=== PATIENT | male | born 1975 | race Caucasian/White ===

== ENCOUNTER 2017-02-26 07:50 | Inpatient (IN) | payer OTHER ==
[2017-02-26] VITALS (7 sets, daily range): BP systolic 115–129; BP diastolic 61–69; PULSE 69–97; RESP 16–20; TEMP 96.9–99.7; O2SAT 98–100
[~2017-02-26] VITALS: Ht 188 cm; Wt 89.5 kg
[2017-02-26] MEDS ORDERED: PROPOFOL 1000 MG/100 ML INJ 0 ML ONE (08:06)
[2017-02-26] MEDS ORDERED: ETOMIDATE 20 MG/10 ML VIAL ONE (08:09)
[2017-02-26] MEDS ORDERED: MORPHINE SULFATE 8 MG/ML INJ ONE (08:26)
[2017-02-26] MEDS ORDERED: ONDANSETRON HCL 4 MG/2 ML VIAL ONE (08:26)
[2017-02-26] MEDS ORDERED: IOHEXOL 350 MG/ML 10 ML VIAL (for RAD DIAG) IVCONTRAST ONE (08:55)
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
[2017-02-26] MEDS ORDERED: DIPHTH/TETANUS/ACEL PERTUSSIS (BOOSTER) 0.5 ML VIAL/PFS IM ONE (09:03)
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
[2017-02-26] MEDS ORDERED: PROPOFOL 200 MG/20 ML AMP IV ONE (09:29)
[2017-02-26] MEDS ORDERED: ONDANSETRON HCL 4 MG/2 ML VIAL IV PUSH ONE (09:29)
[2017-02-26] MEDS ORDERED: NEOSTIGMINE 3 MG/3 ML SYR IV ONE (09:29)
[2017-02-26] MEDS ORDERED: PHENYLEPH/NS 1000 MCG/10 ML SYR IV ONE (09:29)
[2017-02-26] MEDS ORDERED: LACTATED RINGER'S 1000 ML INJ 1,000 ML IV ONE (09:29)
[2017-02-26] MEDS ORDERED: LIDOCAINE HCL 1% PF 5 ML AMPULE OTHER ONE (09:29)
[2017-02-26] MEDS ORDERED: ROCURONIUM INJ 50 MG/5 ML SYRINGE IV PUSH ONE (09:29)
[2017-02-26] MEDS ORDERED: GLYCOPYRROLATE 1 MG/5 ML SYRINGE IV PUSH ONE (09:29)
[2017-02-26 09:54] LABS: AUTOMATED NEUTROPHIL # 5.4 TH/MM3 (1.8-7.7); BASOPHIL # 0.1 TH/MM3 (0-0.2); BASOPHIL % 0.8 % (0.0-2.0); EOSINOPHIL # 0.2 TH/MM3 (0-0.4); EOSINOPHIL % 2.2 % (0.0-4.0); HEMATOCRIT 39.2 % (39.0-51.0); HEMO FLAGS DIFF FINAL; LYMPH % 26.8 % (9.0-44.0); LYMPHOCYTE # 2.4 TH/MM3 (1.0-4.8); MEAN CELL VOLUME 86.5 FL (80.0-100.0); MEAN CORPUSCULAR HGB CONC 33.5 % (32.0-36.0); NEUT % 61.2 % (16.0-70.0); PLATELET COUNT 198 TH/MM3 (150-450); RED BLOOD COUNT 4.52 MIL/MM3 (4.50-5.90); RED CELL DISTRIBUTION WIDTH 13.6 % (11.6-17.2); WHITE BLOOD COUNT 8.8 TH/MM3 (4.0-11.0)
[2017-02-26 09:55] LABS: I-STAT POTASSIUM 3.8 MMOL/L (3.5-4.9); I-STAT SODIUM 140 MMOL/L (138-146)
[2017-02-26 09:58] LABS: APTT (PATIENT) 23.2 SEC (24.3-30.1); PROTHROMBIN TIME - PATIENT 10.7 SEC (9.8-11.6)
[2017-02-26] MEDS ORDERED: ETOMIDATE 20 MG/10 ML VIAL IV PUSH ONE (10:00)
[2017-02-26] MEDS ORDERED: SODIUM CHLOR 0.9% 1000 ML INJ 1,000 ML IV ONE (10:00)
[2017-02-26 10:09] LABS: ALCOHOL LESS THAN 3 MG/DL (0-5)
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
[2017-02-26] MEDS ORDERED: GENTAMICIN SULFATE 80 MG/2 ML VIAL ONE (10:41)
[2017-02-26] MEDS ORDERED: ceFAZolin 2 GM PREMIX 50 ML ONE (10:41)
[2017-02-26] MEDS ORDERED: VANCOMYCIN HCL 1000 MG VIAL ONE (10:42)
[2017-02-26] MEDS ORDERED: SODIUM CHLOR 0.9% 250 ML INJ 250 ML ONE (10:42)
[2017-02-26] MEDS ORDERED: FAMOTIDINE 20 MG/2 ML VIAL ONE (10:51)
[2017-02-26] MEDS ORDERED: HYDROmorphone HCL PF 1 MG/ML VIAL ONE (10:51)
[2017-02-26] MEDS ORDERED: XARE10TA PO (12:20)
[2017-02-26] MEDS ORDERED: HYDR-3583 PO (12:20)
[2017-02-26] MEDS ORDERED: ONDANSETRON HCL 4 MG/2 ML VIAL IVP PRN (14:00)
[2017-02-26] MEDS ORDERED: ERGOCALCIFEROL (VIT D2) 50,000 UNIT CAP PO SCH (14:00)
[2017-02-26] MEDS ORDERED: diphenhydrAMINE HCL 25 MG CAP PO PRN (14:00)
--- NOTE | 2017-02-26 14:01 | PD.OP ---
cc: Bj Torre MD Operative Report Date of Surgery: Feb 26, 2017 Preoperative Diagnosis: right distal tibial shaft fracture Postoperative Diagnosis: Procedure: Reduction and intramedullary nail fixation right tibia Anesthesia: Gen. Surgeon: Bj Torre Instrument Assembler(s): ANTONIETA Kennedy PA-C The surgical procedure was assisted by my physician instructional support assistant. My P.A. presence was necessary throughout this case for the manipulation and positioning of the surgical extremity. My P.A. was assisting me throughout the duration of this procedure. The skill set of a physician instructional support assistant was medically necessary to complete this procedure. During the surgical case the retail maintenance technician was working at the back table and the physician instructional support assistant was directly assisting me. Operation and Findings: Implants: synthes [10]mm x [360]mm tibial nail Plan of activity: Nonweightbearing Patient was seen and examined preoperatively. An informed consent was obtained from patient after detailed discussion of risk and benefits. Risks of surgery include bleeding, infection, painful hardware, nonunion, malunion, leg length discrepancy, need for hardware removal, and medical complications associated with anesthesia including blood clots, stroke, heart attack, and were discussed. Operative site was marked. Patient was brought to the operating room placed on or table. Patient received IV antibiotics and was given IV sedation GETA. Operative leg was prepped with alcohol Hibiclens and draped in usual sterile fashion. Timeout procedure was performed Procedure began with reduction of fracture. 2 small incisions were made around the fracture site. A percutaneous clamp was placed. Traction was applied. Fracture was reduced. There was comminution of the fracture. The fracture reduced and excellent alignment was achieved. Fracture clamp was used to aid in reduction. Next a 3 cm incision was made proximal to the patella. Quadriceps tendon was split in line with fibers. Cannulas were placed in the patellofemoral joint to protect the articular surface at all times. A guidepin was placed into the tibia and advanced in the tibial canal. Fluoroscopy was used to confirm appropriate guidepin placement. An opening reamer was used to open the tibial canal. A ball-tipped guidewire was advanced down the tibial canal. Guidepin was passed across the fracture site into the center of the distal tibia. Fluoroscopy confirmed guidepin placement. The nail length was now measured. The fracture was now held in a reduced position and the canal was reamed. The canal was reamed up to appropriate size. A Synthes nail was now selected. Next the nail was fully seated. Using perfect [place] technique 2 distal interlocking screws were placed. Using the insertion handle as a guide 2 proximal interlocking screws were placed. Fluoroscopy confirmed excellent of fracture with well-placed hardware. Incisions and the knee joint were thoroughly irrigated with sterile saline. Fascia was closed with #1 Vicryl , subcutaneous tissues closed with 3-0 Vicryl and skin was closed with gareth. Sterile dressings were applied. Patient was awakened and transferred to recovery in stable condition. Bj Torre MD Feb 26, 2017 14:01
[2017-02-26] MEDS ORDERED: DO NOT ADM ANY ANTICOAGULANT DRUGS PRN (14:16)
[2017-02-26] MEDS ORDERED: *MEPERIDINE 25 MG INJ VIAL PERIprocedural Use ONLY ONE (14:21)
--- NOTE | 2017-02-26 14:23 | HHI.FF ---
Face to Face Verification Diagnosis: (1) Closed tibia fracture Physical Therapy Gait training Right LE Weight Bearing: Non WB Nursing Dressing Changes: Daily dressing change, Jamel wrap, 4x4s, Xeroform I have seen patient Douglas Delacruz on 02/26/17. My clinical findings support the need for the requested home health care services because: Ltd mobility - disease progression I certify that my clinical findings support that this patient is homebound because: Post-op weakness Alfredito García Feb 26, 2017 14:23
--- NOTE | 2017-02-26 14:23 | PD.ORT.PN ---
Subjective Subjective Remarks POD 0 s/p right tibia IMN s/p right thumb fx stable in pacu Objective Vitals Vital Signs Date Time Temp Pulse Resp B/P (MAP) Pulse Ox O2 Delivery O2 Flow Rate FiO2 02/26/17 10:30 02/26/17 10:26 100 02/26/17 10:26 74 17 123/62 (82) 100 Nasal Cannula 2.00 02/26/17 10:26 Nasal Cannula 2.00 02/26/17 08:47 97 20 129/65 (86) 98 Room Air 02/26/17 08:25 99 02/26/17 07:59 Nasal Cannula 2.00 02/26/17 07:56 98.8 76 20 119/64 (82) 99 I/O 02/25/17 02/25/17 02/25/17 02/26/17 02/26/17 02/26/17 07:00 15:00 23:00 07:00 15:00 23:00 Intake Total 1250 ml Output Total 50 ml Balance 1200 ml Other 1250 ml Output Estimated Blood Loss 50 ml Result Diagram: 02/26/17 0813 Other Results Laboratory Tests Test 02/26/17 08:13 Prothromb Time International Ratio 1.0 RATIO Prothrombin Time 10.7 SEC (9.8-11.6) Imaging Last 24 hours Impressions Tibia/Fibula X-Ray 02/26/17 0000 Signed Impressions: Service Date/Time: Sunday, February 26, 2017 08:03 - CONCLUSION: Comminuted mildly displaced fractures involving the distal tibia and fibula. Rizwan Ruvalcaba MD Pelvis X-Ray 02/26/17 0000 Signed Impressions: Service Date/Time: Sunday, February 26, 2017 08:03 - CONCLUSION: Unremarkable examination of the pelvis. James Biswas Jr., MD Head CT 02/26/17 0000 Signed Impressions: Service Date/Time: Sunday, February 26, 2017 08:26 - CONCLUSION: 1. No acute intracranial hemorrhage. 2. There is a well-defined extra-axial fluid collection in the posterior fossa on the left side adjacent to the posterior left cerebellar hemisphere. This would suggest either a chronic subdural hygroma versus arachnoid cyst. 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 3. The rest of examination is grossly unremarkable for patient's age. Rizwan Ruvalcaba MD Hand X-Ray 02/26/17 Signed Impressions: Service Date/Time: Sunday, February 26, 2017 08:03 - CONCLUSION: Acute fracture of the first metacarpal. James Biswas Jr., MD Elbow X-Ray 02/26/17 Signed Impressions: Service Date/Time: Sunday, February 26, 2017 08:03 - CONCLUSION: Unremarkable limited examination of the right elbow. James Biswas Jr., MD Chest X-Ray 02/26/17 Signed Impressions: Service Date/Time: Sunday, February 26, 2017 08:03 - CONCLUSION: No acute cardiopulmonary process. Dima Mayer MD Chest CT 02/26/17 Signed Impressions: Service Date/Time: Sunday, February 26, 2017 08:32 - CONCLUSION: 1. Isolated 2-3 mm subpleural nodule in the left lower lobe laterally is almost certainly postinflammatory. Minimal dependent atelectatic changes. Lungs are otherwise clear. 2. Soft tissue density in the anterior mediastinum probably represents some residual thymic tissue. 3. Otherwise negative. No acute trauma. Dima Mayer MD Cervical Spine CT 02/26/17 Signed Impressions: Service Date/Time: Sunday, February 26, 2017 08:28 - CONCLUSION: Normal examination for a patient of this age. Rizwan Ruvalcaba MD Ankle X-Ray 02/26/17 Signed Impressions: Service Date/Time: Sunday, February 26, 2017 08:03 - CONCLUSION: Tib-fib fracture as above. Dima Mayer MD Abdomen/Pelvis CT 02/26/17 Signed Impressions: Service Date/Time: Sunday, February 26, 2017 08:29 - CONCLUSION: 1. No signs of acute trauma. 2. 12 12 x 7 mm low density lesion involving the pancreas at the junction of the head and body. This warrants further characterization utilizing outpatient MRI. 3. Right renal cyst. James Biswas Jr., MD Objective Remarks RLE: dressings clean and dry. +swelling of leg. +cap refill distally Assessment & Plan Assessment and Plan 1) Right Tibial Shaft Fx s/p IMN - POD 0 -NWB -daily dressing changes -plan for DC home with [facility] sat/sun -f/u with Lino or [facility]LOISA in 2 weeks 2) Right Thumb Fx -hand consult Alfredito García Feb 26, 2017 14:23
[2017-02-26] MEDS ORDERED: *ONDANSETRON 4 MG VIAL PERIprocedural Use ONLY ONE (14:25)
--- NOTE | 2017-02-26 14:30 | RADRPT ---
EXAM DATE/TIME: 02/26/2017 13:43 [facility] COMPARISON: TIBIA/FIBULA RIGHT (AP/LAT), February 26, 2017, 8:03. INDICATIONS : Post-op ORIF right tibia nail. MEDICAL HISTORY : None. SURGICAL HISTORY : None. ENCOUNTER: Subsequent ACUITY: 1 day PAIN SCORE: Non-responsive. LOCATION: Right tibia. FINDINGS: 8 magnified C-arm spot views are centered over the lower leg and labeled right. These show an intrame dullary desirae with anchoring screws traversing a tibial comminuted diaphyseal fracture. The alignment. Fibular fracture is noted. CONCLUSION: Limited images as detailed above. James Biswas Jr., MD on February 26, 2017 at 14:28 Board Certified Radiologist. This report was verified electronically.
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
[2017-02-26] MEDS: LACTATED RINGER'S 1000 ML INJ 1,000 ML IV SCH (14:42)
[2017-02-26] MEDS ORDERED: MISCELLANEOUS NURSING INFORMATION XX SCH (14:45)
[2017-02-26] MEDS ORDERED: SODIUM CHLORIDE 0.9% FLUSH 10 ML FLUSH IV FLUSH PRN (14:45)
[2017-02-26] MEDS ORDERED: ENALAPRILAT 1.25 MG/ML VIAL IV PUSH PRN (14:45)
[2017-02-26] MEDS: KETOROLAC TROMETHAMINE 30 MG/ML (IVP) VIAL IVP SCH ×2 (15:01→21:03)
[2017-02-26] MEDS: MORPHINE SULFATE 4 MG/ML INJ IV PUSH PRN ×3 (15:31→23:18)
[2017-02-26] MEDS: CALCIUM/VITAMIN D 250 MG/125 U TAB PO SCH (17:27)
[2017-02-26] MEDS: ACETAMINOPHEN/HYDROcodone 325 MG/10 MG TAB PO PRN ×2 (17:27→21:03)
[2017-02-26] MEDS: ceFAZolin 2 GM PREMIX 50 ML IV SCH (17:28)
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
[2017-02-26] MEDS: MAGNESIUM HYDROXIDE SUSP 30 ML CUP PO SCH (21:00)
[2017-02-26] MEDS: DOCUSATE SODIUM 50 MG/SENNA 8.6 MG TAB PO SCH (21:04)
[2017-02-26] MEDS: FAMOTIDINE 20 MG TAB PO SCH (21:04)
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
[2017-02-27] MEDS: VANCOMYCIN INJ 1,000 MG in SODIUM CHLOR 0.9% 250 ML INJ 250 ML IV SCH ×2 (01:04→12:27)
[2017-02-27] MEDS: ceFAZolin 2 GM PREMIX 50 ML IV SCH ×2 (01:04→08:21)
[2017-02-27] MEDS: LACTATED RINGER'S 1000 ML INJ 1,000 ML IV SCH (01:05)
[2017-02-27] MEDS: MORPHINE SULFATE 4 MG/ML INJ IV PUSH PRN ×5 (02:59→22:14)
[2017-02-27] MEDS: ENOXAPARIN SODIUM 40 MG/0.4 ML SYRINGE SQ SCH (02:59)
[2017-02-27 04:00] VITALS: BP 117/58; PULSE 69; RESP 16; TEMP 98; O2SAT 99
[2017-02-27] MEDS: ACETAMINOPHEN/HYDROcodone 325 MG/10 MG TAB PO PRN ×5 (05:13→20:00)
[2017-02-27 05:14] LABS: AUTOMATED NEUTROPHIL # 4.2 TH/MM3 (1.8-7.7); BASOPHIL % 0.5 % (0.0-2.0); EOSINOPHIL # 0.1 TH/MM3 (0-0.4); HEMATOCRIT 32.1 % (39.0-51.0); HEMO FLAGS DIFF FINAL; LYMPH % 21.8 % (9.0-44.0); LYMPHOCYTE # 1.4 TH/MM3 (1.0-4.8); MEAN CELL VOLUME 86.7 FL (80.0-100.0); MEAN CORPUSCULAR HEMOGLOBIN 29.8 PG (27.0-34.0); MEAN CORPUSCULAR HGB CONC 34.4 % (32.0-36.0); MONO % 9.5 % (0.0-8.0); NEUT % 66.2 % (16.0-70.0); PLATELET COUNT 144 TH/MM3 (150-450); RED CELL DISTRIBUTION WIDTH 13.2 % (11.6-17.2); WHITE BLOOD COUNT 6.4 TH/MM3 (4.0-11.0)
[2017-02-27] MEDS: KETOROLAC TROMETHAMINE 30 MG/ML (IVP) VIAL IVP SCH (05:15)
[2017-02-27 05:34] LABS: BICARBONATE 28.9 MEQ/L (21.0-32.0); POTASSIUM 3.6 MEQ/L (3.5-5.1)
--- NOTE | 2017-02-27 07:48 | PD.ORT.PN ---
Subjective Post Op Day #: 1 Subjective Remarks still painful Objective Vitals Vital Signs Date Time Temp Pulse Resp B/P (MAP) Pulse Ox O2 Delivery O2 Flow Rate FiO2 02/27/17 04:00 98.0 69 16 117/58 (77) 99 02/26/17 23:58 98.7 74 16 122/68 (86) 100 02/26/17 20:00 99.7 75 16 118/69 (85) 100 02/26/17 15:48 96.9 69 19 115/61 (79) 100 02/26/17 15:10 98.5 63 18 122/60 (80) 99 Nasal Cannula 1 02/26/17 15:00 63 20 123/61 (81) 99 Nasal Cannula 1 02/26/17 14:45 67 21 122/60 (80) 19 Nasal Cannula 2 02/26/17 14:30 66 21 122/58 (79) 99 Nasal Cannula 2 02/26/17 14:23 97.8 90 20 131/74 (93) 93 Nasal Cannula 4 02/26/17 10:30 02/26/17 10:26 100 02/26/17 10:26 74 17 123/62 (82) 100 Nasal Cannula 2.00 02/26/17 10:26 Nasal Cannula 2.00 02/26/17 08:47 97 20 129/65 (86) 98 Room Air 02/26/17 08:25 99 02/26/17 07:59 Nasal Cannula 2.00 02/26/17 07:56 98.8 76 20 119/64 (82) 99 I/O 02/26/17 02/26/17 02/26/17 02/27/17 02/27/17 02/27/17 07:00 15:00 23:00 07:00 15:00 23:00 Intake Total 1250 ml 505 ml 360 ml Output Total 50 ml 250 ml 350 ml Balance 1200 ml 255 ml 10 ml Intake Oral 480 ml 360 ml IV Total 25 ml Other 1250 ml Output Urine Total 250 ml 350 ml Estimated Blood Loss 50 ml Result Diagram: 02/27/17 0411 02/27/17 0441 Other Results Laboratory Tests Test 02/26/17 08:13 Prothromb Time International Ratio 1.0 RATIO Prothrombin Time 10.7 SEC (9.8-11.6) Imaging Last 24 hours Impressions Tibia/Fibula X-Ray 02/26/17 Signed Impressions: Service Date/Time: Sunday, February 26, 2017 08:03 - CONCLUSION: Comminuted mildly displaced fractures involving the distal tibia and fibula. Rizwan Ruvalcaba MD Pelvis X-Ray 02/26/17 Signed Impressions: Service Date/Time: Sunday, February 26, 2017 08:03 - CONCLUSION: Unremarkable examination of the pelvis. James Biswas Jr., MD Head CT 02/26/17 Signed Impressions: Service Date/Time: Sunday, February 26, 2017 08:26 - CONCLUSION: 1. No acute intracranial hemorrhage. 2. There is a well-defined extra-axial fluid collection in the posterior fossa on the left side adjacent to the posterior left cerebellar hemisphere. This would suggest either a chronic subdural hygroma versus arachnoid cyst. 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 3. The rest of examination is grossly unremarkable for patient's age. Rizwan Ruvalcaba MD Hand X-Ray 02/26/17 Signed Impressions: Service Date/Time: Sunday, February 26, 2017 08:03 - CONCLUSION: Acute fracture of the first metacarpal. James Biswas Jr., MD Elbow X-Ray 02/26/17 Signed Impressions: Service Date/Time: Sunday, February 26, 2017 08:03 - CONCLUSION: Unremarkable limited examination of the right elbow. James Biswas Jr., MD Chest X-Ray 02/26/17 Signed Impressions: Service Date/Time: Sunday, February 26, 2017 08:03 - CONCLUSION: No acute cardiopulmonary process. Dima Mayer MD Chest CT 02/26/17 Signed Impressions: Service Date/Time: Sunday, February 26, 2017 08:32 - CONCLUSION: 1. Isolated 2-3 mm subpleural nodule in the left lower lobe laterally is almost certainly postinflammatory. Minimal dependent atelectatic changes. Lungs are otherwise clear. 2. Soft tissue density in the anterior mediastinum probably represents some residual thymic tissue. 3. Otherwise negative. No acute trauma. Dima Mayer MD Cervical Spine CT 02/26/17 Signed Impressions: Service Date/Time: Sunday, February 26, 2017 08:28 - CONCLUSION: Normal examination for a patient of this age. Rizwan Ruvalcaba MD Ankle X-Ray 02/26/17 0000 Signed Impressions: Service Date/Time: Sunday, February 26, 2017 08:03 - CONCLUSION: Tib-fib fracture as above. Dima Mayer MD Abdomen/Pelvis CT 02/26/17 0000 Signed Impressions: Service Date/Time: Sunday, February 26, 2017 08:29 - CONCLUSION: 1. No signs of acute trauma. 2. 12 12 x 7 mm low density lesion involving the pancreas at the junction of the head and body. This warrants further characterization utilizing outpatient MRI. 3. Right renal cyst. James Biswas Jr., MD Objective Remarks RLE: dressings clean and dry. +swelling of leg. +cap refill distally, NVI Assessment & Plan Ortho Post Op Day #: 1 Problem List: Assessment and Plan 1) Right Tibial Shaft Fx s/p IMN - POD 1 -NWB -daily dressing changes -lovenox -plan for DC home with C sat/sun - when pain under control -f/u with Lino or [facility]LOISA in 2 weeks 2) Right Thumb Fx -hand consult - Emre Peralta Feb 27, 2017 07:48
[2017-02-27 08:00] VITALS: BP 111/61; PULSE 77; RESP 16; TEMP 98; O2SAT 97
[2017-02-27] MEDS: CALCIUM/VITAMIN D 250 MG/125 U TAB PO SCH ×3 (08:07→16:35)
[2017-02-27] MEDS: LACTULOSE SYRUP 20 GM/30 ML CUP PO SCH (08:07)
[2017-02-27] MEDS: ASCORBIC ACID 500 MG TAB PO SCH (08:07)
[2017-02-27] MEDS: CHOLECALCIFEROL (VIT D3) 1000 UNIT TAB PO SCH (08:07)
[2017-02-27] MEDS: FAMOTIDINE 20 MG TAB PO SCH ×2 (08:07→19:59)
[2017-02-27] MEDS: DOCUSATE SODIUM 50 MG/SENNA 8.6 MG TAB PO SCH ×2 (08:08→19:59)
[2017-02-27] MEDS: ONDANSETRON HCL 4 MG/2 ML VIAL IV PUSH PRN ×3 (09:36→22:17)
[2017-02-27 12:00] VITALS: BP 142/67; PULSE 77; RESP 16; TEMP 97.3; O2SAT 94
[2017-02-27] MEDS: METHOCARBAMOL 500 MG TAB PO SCH ×2 (12:26→22:18)
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
[2017-02-27 16:00] VITALS: BP 112/59; PULSE 77; RESP 16; TEMP 97.9; O2SAT 100
[2017-02-27] MEDS: MAGNESIUM HYDROXIDE SUSP 30 ML CUP PO SCH (20:01)
[2017-02-27 20:15] VITALS: BP 139/73; PULSE 77; RESP 18; TEMP 99.6; O2SAT 99
[2017-02-28 00:01] VITALS: BP 124/70; PULSE 76; RESP 18; TEMP 99.3; O2SAT 98
[2017-02-28] MEDS: ENOXAPARIN SODIUM 40 MG/0.4 ML SYRINGE SQ SCH (02:44)
[2017-02-28] MEDS: ACETAMINOPHEN/HYDROcodone 325 MG/10 MG TAB PO PRN ×5 (02:44→21:07)
[2017-02-28 03:03] VITALS: BP 135/75; PULSE 79; RESP 18; TEMP 97.9; O2SAT 99
[2017-02-28] MEDS: ONDANSETRON HCL 4 MG/2 ML VIAL IV PUSH PRN ×2 (05:59→17:25)
[2017-02-28] MEDS: METHOCARBAMOL 500 MG TAB PO SCH ×3 (05:59→22:43)
[2017-02-28] MEDS: MORPHINE SULFATE 4 MG/ML INJ IV PUSH PRN ×3 (06:02→15:20)
[2017-02-28] MEDS ORDERED: WALKER WHEELS/F1 MIS (07:09)
--- NOTE | 2017-02-28 07:41 | PD.ORT.PN ---
Subjective Subjective Remarks Patient reports mild head and neck discomfort this morning but states his right lower extremity is doing well. Objective Vitals Vital Signs Date Time Temp Pulse Resp B/P (MAP) Pulse Ox O2 Delivery O2 Flow Rate FiO2 02/28/17 03:03 97.9 79 18 135/75 (95) 99 02/28/17 00:01 99.3 76 18 124/70 (88) 98 02/27/17 20:15 99.6 77 18 139/73 (95) 99 02/27/17 16:00 97.9 77 16 112/59 (76) 100 02/27/17 12:00 97.3 77 16 142/67 (92) 94 02/27/17 08:00 98.0 77 16 111/61 (78) 97 I/O 02/27/17 02/27/17 02/27/17 02/28/17 02/28/17 02/28/17 07:00 15:00 23:00 07:00 15:00 23:00 Intake Total 660 ml 1041 ml 1080 ml 480 ml Output Total 350 ml 800 ml Balance 310 ml 1041 ml 280 ml 480 ml Intake Oral 360 ml 1080 ml 480 ml IV Total 300 ml 1041 ml Output Urine Total 350 ml 800 ml # Voids 3 2 # Bowel Movements 0 0 Result Diagram: 02/27/17 0411 02/27/17 044 Imaging Last 24 hours Impressions Tibia/Fibula X-Ray 02/26/17 0000 Signed Impressions: Service Date/Time: Sunday, February 26, 2017 08:03 - CONCLUSION: Comminuted mildly displaced fractures involving the distal tibia and fibula. Rizwan Ruvalcaba MD Pelvis X-Ray 02/26/17 0000 Signed Impressions: Service Date/Time: Sunday, February 26, 2017 08:03 - CONCLUSION: Unremarkable examination of the pelvis. James Biswas Jr., MD Head CT 02/26/17 0000 Signed Impressions: Service Date/Time: Sunday, February 26, 2017 08:26 - CONCLUSION: 1. No acute intracranial hemorrhage. 2. There is a well-defined extra-axial fluid collection in the posterior fossa on the left side adjacent to the posterior left cerebellar hemisphere. This would suggest either a chronic subdural hygroma versus arachnoid cyst. 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 3. The rest of examination is grossly unremarkable for patient's age. Rizwan Ruvalcaba MD Hand X-Ray 02/26/17 Signed Impressions: Service Date/Time: Sunday, February 26, 2017 08:03 - CONCLUSION: Acute fracture of the first metacarpal. James Biswas Jr., MD Elbow X-Ray 02/26/17 Signed Impressions: Service Date/Time: Sunday, February 26, 2017 08:03 - CONCLUSION: Unremarkable limited examination of the right elbow. James Biswas Jr., MD Chest X-Ray 02/26/17 Signed Impressions: Service Date/Time: Sunday, February 26, 2017 08:03 - CONCLUSION: No acute cardiopulmonary process. Dima Mayer MD Chest CT 02/26/17 Signed Impressions: Service Date/Time: Sunday, February 26, 2017 08:32 - CONCLUSION: 1. Isolated 2-3 mm subpleural nodule in the left lower lobe laterally is almost certainly postinflammatory. Minimal dependent atelectatic changes. Lungs are otherwise clear. 2. Soft tissue density in the anterior mediastinum probably represents some residual thymic tissue. 3. Otherwise negative. No acute trauma. Dima Mayer MD Cervical Spine CT 02/26/17 Signed Impressions: Service Date/Time: Sunday, February 26, 2017 08:28 - CONCLUSION: Normal examination for a patient of this age. Rizwan Ruvalcaba MD Ankle X-Ray 02/26/17 Signed Impressions: Service Date/Time: Sunday, February 26, 2017 08:03 - CONCLUSION: Tib-fib fracture as above. Dima Mayer MD Abdomen/Pelvis CT 02/26/17 Signed Impressions: Service Date/Time: Sunday, February 26, 2017 08:29 - CONCLUSION: 1. No signs of acute trauma. 2. 12 12 x 7 mm low density lesion involving the pancreas at the junction of the head and body. This warrants further characterization utilizing outpatient MRI. 3. Right renal cyst. James Biswas Jr., MD Objective Remarks RLE: dressings clean and dry. +swelling of leg. +cap refill distally, NVI Assessment & Plan Assessment and Plan 1) Right Tibial Shaft Fx s/p IMN - POD 2 -NWB -daily dressing changes -lovenox -plan for DC home with [facility] poss today -f/u with [facility] or [facility] in 2 weeks 2) Right Thumb Fx -hand consult - Jasmine Mcdonough MD Feb 28, 2017 07:41
[2017-02-28 08:00] VITALS: BP 121/75; PULSE 78; RESP 16; TEMP 97.7; O2SAT 100
[2017-02-28] MEDS: DOCUSATE SODIUM 50 MG/SENNA 8.6 MG TAB PO SCH ×2 (09:01→20:17)
[2017-02-28] MEDS: ASCORBIC ACID 500 MG TAB PO SCH (09:02)
[2017-02-28] MEDS: CALCIUM/VITAMIN D 250 MG/125 U TAB PO SCH ×3 (09:03→17:25)
[2017-02-28] MEDS: FAMOTIDINE 20 MG TAB PO SCH ×2 (09:03→20:12)
[2017-02-28] MEDS: KETOROLAC TROMETHAMINE 30 MG/ML (IVP) VIAL IV PUSH SCH ×3 (09:03→17:26)
[2017-02-28] MEDS: LACTULOSE SYRUP 20 GM/30 ML CUP PO SCH (09:03)
[2017-02-28] MEDS: CHOLECALCIFEROL (VIT D3) 1000 UNIT TAB PO SCH (09:03)
[2017-02-28 10:35] LABS: HEMATOCRIT 35.3 % (39.0-51.0); REVIEW FLAG FINAL
[2017-02-28 12:00] VITALS: BP 124/70; PULSE 100; RESP 16; TEMP 97.2; O2SAT 100
[2017-02-28] MEDS ORDERED: BISACODYL 10 MG SUPP RECTAL PRN (12:45)
[2017-02-28] MEDS: MAGNESIUM CITRATE SOLN 300 ML BTL PO ONE ×2 (13:00→13:29)
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
[2017-02-28 16:00] VITALS: BP 115/74; PULSE 76; RESP 16; TEMP 98.2; O2SAT 99
[2017-02-28 20:00] VITALS: BP 103/56; PULSE 69; RESP 16; TEMP 98.2; O2SAT 95
[2017-02-28] MEDS: GABAPENTIN 100 MG CAP PO SCH (20:12)
[2017-02-28] MEDS: MAGNESIUM HYDROXIDE SUSP 30 ML CUP PO SCH (20:17)
[2017-03-01 00:05] VITALS: BP 118/67; PULSE 64; RESP 16; TEMP 98.1; O2SAT 96
[2017-03-01] MEDS: KETOROLAC TROMETHAMINE 30 MG/ML (IVP) VIAL IV PUSH SCH ×4 (00:08→19:24)
[2017-03-01] MEDS: ACETAMINOPHEN/HYDROcodone 325 MG/10 MG TAB PO PRN ×7 (00:12→22:21)
[2017-03-01] MEDS: ENOXAPARIN SODIUM 40 MG/0.4 ML SYRINGE SQ SCH (02:20)
[2017-03-01] MEDS: METHOCARBAMOL 500 MG TAB PO SCH ×3 (05:52→22:20)
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
[2017-03-01 07:14] VITALS: BP 110/63; PULSE 71; RESP 17; TEMP 97.8; O2SAT 97
[2017-03-01] MEDS: LACTULOSE SYRUP 20 GM/30 ML CUP PO SCH (07:41)
[2017-03-01] MEDS: ASCORBIC ACID 500 MG TAB PO SCH (07:41)
[2017-03-01] MEDS: CALCIUM/VITAMIN D 250 MG/125 U TAB PO SCH ×3 (07:42→19:23)
[2017-03-01] MEDS: CHOLECALCIFEROL (VIT D3) 1000 UNIT TAB PO SCH (07:42)
[2017-03-01] MEDS: FAMOTIDINE 20 MG TAB PO SCH ×2 (07:42→21:00)
[2017-03-01] MEDS: GABAPENTIN 100 MG CAP PO SCH ×3 (07:42→19:23)
[2017-03-01] MEDS: DOCUSATE SODIUM 50 MG/SENNA 8.6 MG TAB PO SCH ×2 (07:42→22:20)
[2017-03-01 12:00] VITALS: BP 131/59; PULSE 68; RESP 17; TEMP 97.6; O2SAT 98
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
[2017-03-01] MEDS ORDERED: fentaNYL 50 MCG/HR PATCH T-DERMAL SCH (15:00)
[2017-03-01 15:32] VITALS: BP 112/59; PULSE 78; RESP 17; TEMP 98.6; O2SAT 97
[2017-03-01 20:00] VITALS: BP 106/54; PULSE 81; RESP 16; TEMP 99.1; O2SAT 96
[2017-03-01] MEDS: MAGNESIUM HYDROXIDE SUSP 30 ML CUP PO SCH (21:00)
[2017-03-02] VITALS: BP 110/65; PULSE 61; RESP 16; TEMP 96.7; O2SAT 98
[2017-03-02] MEDS: KETOROLAC TROMETHAMINE 30 MG/ML (IVP) VIAL IV PUSH SCH ×2 (00:47→06:04)
[2017-03-02] MEDS: ACETAMINOPHEN/HYDROcodone 325 MG/10 MG TAB PO PRN ×5 (01:51→16:36)
[2017-03-02] MEDS: ENOXAPARIN SODIUM 40 MG/0.4 ML SYRINGE SQ SCH (01:52)
[2017-03-02] MEDS: METHOCARBAMOL 500 MG TAB PO SCH ×2 (06:04→13:43)
--- NOTE | 2017-03-02 07:13 | PD.ORT.PN ---
Subjective Subjective Remarks In bed with pain controlled. Still having difficulty with transfers. He is concerned about his discharge plan Objective Vitals Vital Signs Date Time Temp Pulse Resp B/P (MAP) Pulse Ox O2 Delivery O2 Flow Rate FiO2 03/02/17 00:00 96.7 61 16 110/65 (80) 98 03/01/17 20:00 99.1 81 16 106/54 (71) 96 03/01/17 15:32 98.6 78 17 112/59 (76) 97 03/01/17 12:00 97.6 68 17 131/59 (83) 98 03/01/17 07:14 97.8 71 17 110/63 (79) 97 I/O 03/01/17 03/01/17 03/01/17 03/02/17 03/02/17 03/02/17 07:00 15:00 23:00 07:00 15:00 23:00 Intake Total 240 ml 960 ml 480 ml 480 ml Output Total 1080 ml 900 ml Balance 240 ml 960 ml -600 ml -420 ml Intake Oral 240 ml 960 ml 480 ml 480 ml Output Urine Total 1080 ml 900 ml # Voids 2 3 # Bowel Movements 0 1 0 0 Result Diagram: 02/28/17 0959 02/27/17 0441 Imaging Last 24 hours Impressions Tibia/Fibula X-Ray 02/26/17 0000 Signed Impressions: Service Date/Time: Sunday, February 26, 2017 08:03 - CONCLUSION: Comminuted mildly displaced fractures involving the distal tibia and fibula. Rizwan Ruvalcaba MD Pelvis X-Ray 02/26/17 0000 Signed Impressions: Service Date/Time: Sunday, February 26, 2017 08:03 - CONCLUSION: Unremarkable examination of the pelvis. James Biswas Jr., MD Head CT 02/26/17 0000 Signed Impressions: Service Date/Time: Sunday, February 26, 2017 08:26 - CONCLUSION: 1. No acute intracranial hemorrhage. 2. There is a well-defined extra-axial fluid collection in the posterior fossa on the left side adjacent to the posterior left cerebellar hemisphere. This would suggest either a chronic subdural hygroma versus arachnoid cyst. 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 3. The rest of examination is grossly unremarkable for patient's age. Rizwan Ruvalcaba MD Hand X-Ray 02/26/17 Signed Impressions: Service Date/Time: Sunday, February 26, 2017 08:03 - CONCLUSION: Acute fracture of the first metacarpal. James Biswas Jr., MD Elbow X-Ray 02/26/17 Signed Impressions: Service Date/Time: Sunday, February 26, 2017 08:03 - CONCLUSION: Unremarkable limited examination of the right elbow. James Biswas Jr., MD Chest X-Ray 02/26/17 Signed Impressions: Service Date/Time: Sunday, February 26, 2017 08:03 - CONCLUSION: No acute cardiopulmonary process. Dima Mayer MD Chest CT 02/26/17 Signed Impressions: Service Date/Time: Sunday, February 26, 2017 08:32 - CONCLUSION: 1. Isolated 2-3 mm subpleural nodule in the left lower lobe laterally is almost certainly postinflammatory. Minimal dependent atelectatic changes. Lungs are otherwise clear. 2. Soft tissue density in the anterior mediastinum probably represents some residual thymic tissue. 3. Otherwise negative. No acute trauma. Dima Mayer MD Cervical Spine CT 02/26/17 Signed Impressions: Service Date/Time: Sunday, February 26, 2017 08:28 - CONCLUSION: Normal examination for a patient of this age. Rizwan Ruvalcaba MD Ankle X-Ray 02/26/17 Signed Impressions: Service Date/Time: Sunday, February 26, 2017 08:03 - CONCLUSION: Tib-fib fracture as above. Dima Mayer MD Abdomen/Pelvis CT 02/26/17 Signed Impressions: Service Date/Time: Sunday, February 26, 2017 08:29 - CONCLUSION: 1. No signs of acute trauma. 2. 12 12 x 7 mm low density lesion involving the pancreas at the junction of the head and body. This warrants further characterization utilizing outpatient MRI. 3. Right renal cyst. James Biswas Jr., MD Objective Remarks RLE: dressings clean and dry. +swelling of leg. +cap refill distally, NVI RUE: +swelling over medial elbow. tender to touch. full motion. NVI Assessment & Plan Assessment and Plan 1) Right Tibial Shaft Fx s/p IMN - POD 4 -NWB -daily dressing changes -lovenox -plan for DC when arrangements are completed. Orthopedically cleared for discharge -f/u with [facility] or [facility] in 2 weeks 2) Right Thumb Fx -hand consult - Bienvenido Correa Jr. Mar 02, 2017 07:13
[2017-03-02] MEDS ORDERED: WHEEMIS3 (07:14)
[2017-03-02] MEDS: ONDANSETRON HCL 4 MG/2 ML VIAL IV PUSH PRN ×2 (07:34→13:59)
[2017-03-02] MEDS: CHOLECALCIFEROL (VIT D3) 1000 UNIT TAB PO SCH (07:35)
[2017-03-02] MEDS: CALCIUM/VITAMIN D 250 MG/125 U TAB PO SCH ×2 (07:35→13:00)
[2017-03-02] MEDS: FAMOTIDINE 20 MG TAB PO SCH (07:36)
[2017-03-02] MEDS: ASCORBIC ACID 500 MG TAB PO SCH (07:36)
[2017-03-02] MEDS: GABAPENTIN 100 MG CAP PO SCH ×3 (07:36→16:37)
[2017-03-02 08:00] VITALS: BP 109/70; PULSE 78; RESP 20; TEMP 97.2; O2SAT 100
[2017-03-02] MEDS: LACTULOSE SYRUP 20 GM/30 ML CUP PO SCH (09:00)
[2017-03-02] MEDS: DOCUSATE SODIUM 50 MG/SENNA 8.6 MG TAB PO SCH (09:00)
[2017-03-02 12:00] VITALS: BP 128/73; PULSE 80; RESP 20; TEMP 97.5; O2SAT 98
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
[2017-03-02 16:00] VITALS: BP 118/54; PULSE 75; RESP 16; TEMP 98; O2SAT 98
[2017-03-04] MEDS ORDERED: REMOVE OLD DURAGESIC (FENTANYL) PATCH T-DERMAL SCH (15:00)
== END 2017-03-02 17:57 | DRG 494 ==
LOC: NEPE 07:50 → NEDA 10:22 → N06A 15:27
PROVIDERS: ADMIT Surgery; ATTEND Surgery
PROC: 0QSG36Z Reposition Right Tibia with Intramedullary Internal Fixation Device, Percutaneous Approach (ICD-10-PCS; principal; 2017-02-26 12:06)
DX: S89.101A Unspecified physeal fracture of lower end of right tibia, initial encounter for closed fracture (principal); S82.401A Unspecified fracture of shaft of right fibula, initial encounter for closed fracture; S62.201A Unspecified fracture of first metacarpal bone, right hand, initial encounter for closed fracture; V03.90XA Pedestrian on foot injured in collision with car, pick-up truck or van, unspecified whether traffic or nontraffic accident, initial encounter; Y92.410 Unspecified street and highway as the place of occurrence of the external cause; S62.501A Fracture of unspecified phalanx of right thumb, initial encounter for closed fracture; Z65.3 Problems related to other legal circumstances
CPT/HCPCS: 27752; 70450; 71010; 71260; 72125; 72170; 73070; 73120; 73130; 73590; 73600; 74177; 76000; 80048; 80307; 82435; 82565; 82947; 84132; 84295; 84520; 85014; 85018; 85025; 85384; 85610; 85730; 86850; 86900; 86901; 90471; 90715; 94150; 96374; C1713; J0690; J1170; J1580; J1650; J1885; J2175; J2270; J2370; J2405; J2710; J3010; J3370; J7050; J7120; L3808; Q9967